=== PATIENT | female | born 2000 | race Two or more races ===

== ENCOUNTER 2022-04-01 20:11 | Emergency (ER) | payer MEDICAID ==
[~2022-04-01] VITALS: Ht 154.9 cm; Wt 64.4 kg
[2022-04-01 20:11] VITALS: BP 118/80
== END 2022-04-02 01:11 | disposition left against medical advice (07) ==
LOC: ER 20:11
DX: S01.81XA Laceration without foreign body of other part of head, initial encounter (principal); M25.511 Pain in right shoulder; M25.532 Pain in left wrist; M25.531 Pain in right wrist; M25.521 Pain in right elbow; Z53.21 Procedure and treatment not carried out due to patient leaving prior to being seen by health care provider; V89.2XXA Person injured in unspecified motor-vehicle accident, traffic, initial encounter; Y93.89 Activity, other specified; Y92.89 Other specified places as the place of occurrence of the external cause; Y99.8 Other external cause status
CPT/HCPCS: 70450; 73030; 73100

== ENCOUNTER 2022-07-01 20:16 | Emergency (ER) | payer MEDICAID, OTHER ==
[~2022-07-01] VITALS: Ht 154.9 cm; Wt 68.0 kg
[2022-07-01 23:45] VITALS: BP 128/79
[2022-07-01] MEDS ORDERED: LIDOCAINE 1% HCL (LOCAL ANESTH.) INJ 20ML MDV ID ONE (23:45)
[2022-07-02] MEDS ORDERED: NAPR500T31 PO
[2022-07-02] MEDS ORDERED: CEFD300C2 PO
== END 2022-07-02 00:15 | disposition home or self-care (01) ==
LOC: ER 20:16
DX: S01.81XA Laceration without foreign body of other part of head, initial encounter (principal); V43.62XA Car passenger injured in collision with other type car in traffic accident, initial encounter; Y93.89 Activity, other specified; Y92.89 Other specified places as the place of occurrence of the external cause; Y99.8 Other external cause status
CPT/HCPCS: 12013; 99283; J7030